=== PATIENT | male | born 1965 | race Caucasian/White ===

== ENCOUNTER 2018-05-28 17:29 | Emergency (ER) | payer MEDICAID ==
[~2018-05-28] VITALS: Ht 170.2 cm; Wt 77.1 kg
[2018-05-28 18:11] VITALS: BP 142/98
--- NOTE | 2018-05-28 18:24 | NUR ---
TAKEN TO RADIOLOGY VIA WHEELCHAIR
--- NOTE | 2018-05-28 19:39 | NUR ---
PATIENT BIB WC TO ER BED 7.
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
[2018-05-28] MEDS ORDERED: KETOROLAC 60 MG/2 ML VIAL IM ONE (20:25)
--- NOTE | 2018-05-28 20:35 | NUR ---
EMT APPLYING SPLINT AT THIS TIME.
--- NOTE | 2018-05-28 20:55 | NUR ---
POSTERIOR SHORT SPLINT APPLIED TO PT R LEG. +CSM
--- NOTE | 2018-05-28 21:02 | NUR ---
PT GIVEN CRUTCHES FITTED TO PT HEIGHT AND ARM LENGTH. PT GIVEN PROPER INSTRUCTION ON USE OF CRUTCHES, PT STATED HE HAS EXPERIENCE USING CRUTCHES. PT GIVEN INSTRUCTION ON WALKING, MOVING FROM SITTING OT STANDING POSITION AND CLIMBING UP AND DOWN STAIRS. PT DEMONSTRATED PROPER USE FOR APPROXIMATELY 20 FEET
[2018-05-28 21:20] VITALS: BP 138/87
--- NOTE | 2018-05-28 21:20 | NUR ---
Patient discharged with v/s stable. Written and verbal after care instructions given and explained. Patient alert, oriented and verbalized understanding of instructions. Ambulatory with steady gait. All questions addressed prior to discharge. ID band removed. Patient advised to follow up with PMD. Rx of MOTRIN, TRAMADOL given. Patient educated on indication of medication including possible reaction and side effects. Opportunity to ask questions provided and answered.
== END 2018-05-28 21:20 | disposition home or self-care (01) ==
LOC: MED 17:29
DX: S93.401A Sprain of unspecified ligament of right ankle, initial encounter (principal); J45.909 Unspecified asthma, uncomplicated; I10 Essential (primary) hypertension; F41.9 Anxiety disorder, unspecified; Z98.890 Other specified postprocedural states; X58.XXXA Exposure to other specified factors, initial encounter; Y93.89 Activity, other specified; Y92.89 Other specified places as the place of occurrence of the external cause; Y99.8 Other external cause status
CPT/HCPCS: 29515; 73610; 96372; 99283; J1885